=== PATIENT | female | born 1945 | race Caucasian/White ===

== ENCOUNTER 2019-12-18 15:31 | Emergency (ER) | payer OTHER ==
--- OUTSIDE RECORDS SUMMARY | 2019-12-18 15:33 | XMS REPORT ---
:1945 [facility] Address [address] [place] [address] [address]. [address] [place] [address] Care Team Providers Name Role Phone Unavailable Unavailable Unavailable Payers Payer Name Policy Type Policy Number Effective Date Expiration Date Problems This patient has no known problems. Allergies, Adverse Reactions, Alerts Allergy Allergy Status Severity Reaction(s) Onset Inactive Treating Comments Name Type Date Date Clinician No Known DA Active U 2018-07 Allergies -05 00:00:0 0 No Known DA Active U 2015-11 Allergies - 00:00:0 0 Medications This patient has no known medications.
--- NOTE | 2019-12-18 18:01 | RAD REPORT ---
EXAM DESCRIPTION: US - Abdomen Exam Limited - 12/18/2019 5:30 pm CLINICAL HISTORY: abd pain COMPARISON: Abdomen Exam Complete dated 05/03/2019 FINDINGS: No gallstones, sludge or other abnormalities within the gallbladder lumen. There is no wal l thickening or pericholecystic fluid. No common duct stone or biliary tree dilatation identified. IMPRESSION: Normal gallbladder and biliary tree ultrasound.
--- NOTE | 2019-12-18 18:03 | RAD REPORT ---
EXAM DESCRIPTION: RAD - Chest Pa And Lat (2 Views) - 12/18/2019 5:27 pm CLINICAL HISTORY: chest pain COMPARISON: Chest Pa And Lat (2 Views) dated 12/24/2018 TECHNIQUE: Frontal and lateral views of the chest were obtained. FINDINGS: The lungs are clear. Interstitial pattern matches comparison. Heart size is normal and ce ntral vasculature is within normal limits. No pleural effusion or pneumothorax seen. No acute bony finding noted. No aortic abnormality. IMPRESSION: No acute cardiopulmonary process.
[2019-12-18] MEDS ORDERED: SUCRALFATE 1 GM TABLET ONE (19:01)
[2019-12-18] MEDS ORDERED: SIMETHICONE 80 MG TAB ONE (19:01)
[2019-12-18 19:36] LABS: Absolute Lymphocytes (CBC) 2.1 K/uL (0.7-4.9); Basophils % 0.9 % (0-1.3); Hematocrit 44.1 % (36.0-45.0); Lymphocytes % 29.3 % (15.3-44.8); MPV 7.7 fL (7.6-11.3); RBC Red Blood Cell Count 4.85 M/uL (3.86-4.86)
[2019-12-18 19:52] LABS: BUN Blood Urea Nitrogen 13 mg/dL (7-18); Bicarbonate 26 mmol/L (21-32); Creatine Phosphokinase 114 U/L (26-192); Glucose Level 100 mg/dL (74-106); Potassium 4.3 mmol/L (3.5-5.1); Sodium Level 140 mmol/L (136-145); Troponin (Emerg Dept Use Only) < 0.02 ng/mL (0.0-0.045)
--- NOTE | 2019-12-18 20:33 | ER ---
Nurse's Notes [facility] Name: Serena Kohli Age: 73 yrs Sex: Female : 1945 Arrival Date: 12/18/2019 Time: 15:32 Bed 26 Private MD: Diagnosis: Chest pain, unspecified Presentation: 12/18 15:37 Presenting complaint: Patient states: She has had pain in her back for the past couple aj1 week. It started shooting to her chest 2 days ago. She went to Urgent Care and they sent her here. Transition of care: patient was not received from another setting of care. Onset of symptoms was November 2019. Risk Assessment: Do you want to hurt yourself or someone else? Patient reports no desire to harm self or others. Initial Sepsis Screen: Does the patient meet any 2 criteria? No. Patient's initial sepsis screen is negative. Does the patient have a suspected source of infection? No. Patient's initial sepsis screen is negative. Care prior to arrival: None. 15:37 Method Of Arrival: Ambulatory aj1 15:37 Acuity: MILY 3 aj1 Triage Assessment: 15:42 General: Appears in no apparent distress. comfortable, Behavior is calm, cooperative, aj1 appropriate for age. Pain: Complains of pain in back Pain radiates to chest. Neuro: Level of Consciousness is awake, alert, obeys commands, Oriented to person, place, time, situation. Cardiovascular: Reports chest pain, Patient's skin is warm and dry. Respiratory: Airway is patent Respiratory effort is even, unlabored, Respiratory pattern is regular, symmetrical. Historical: - Allergies: 15:42 No Known Allergies; aj1 - Home Meds: 15:42 gabapentin oral oral [Active]; meloxicam oral oral [Active]; Zyrtec Oral [Active]; aj1 Prolia subcutaneous subcutaneous [Active]; - PMHx: 15:42 Osteoporosis; Diabetes - NIDDM; aj1 - Immunization history:: Flu vaccine is not up to date. - Coronavirus screen:: The patient has NOT traveled to [place] in the past 14 days. - Social history:: Smoking status: Patient/guardian denies using tobacco. - Ebola Screening: : Patient denies travel to an Ebola-affected area in the 21 days before illness onset. Vital Signs: 15:42 BP 139 / 77; Pulse 89; Resp 18; Temp 97.4; Pulse Ox 99% on R/A; Weight 78.47 kg (R); aj1 Height 5 ft. 2 in. (157.48 cm) (R); Pain 6/10; 15:42 Body Mass Index 31.64 (78.47 kg, 157.48 cm) aj1 ED Course: 15:32 Patient arrived in ED. as 15:39 Triage completed. aj1 15:42 Arm band placed on Patient placed in waiting room, Patient notified of wait time. aj1 15:46 Huong Matos, RN is Primary Nurse. aj1 16:17 Ludy White, PRECIOUS-C is PHCP. snw 16:17 Tan Robertson MD is Attending Physician. snw 17:21 Ultrasound completed. Patient tolerated well. Note: pt taken to xray after us. sg3 Administered Medications: 19:00 Drug: CarafATE 1 grams Route: PO; vc 19:00 Drug: Simethicone 240 mg Route: PO; vc Outcome: 20:32 Discharge ordered by . snw 20:42 Patient left the ED. lt1 Signatures: Huong Matos, RN RN aj1 Ludy White, PRECIOUS-C EXTRUSION DIE REPAIRER-CsnCindy Britt Sarah sg3 Rebeca Sandoval lt1 Morenita Torres RN RN vc
--- NOTE | 2019-12-18 20:34 | EDPHYS ---
Physician Documentation [facility] Name: Serena Kohli Age: 73 yrs Sex: Female : 1945 Arrival Date: 12/18/2019 Time: 15:32 Bed 26 Private MD: ED Physician Tan Robertson HPI: 12/18 16:31 This 73 yrs old Female presents to ER via Ambulatory with complaints of Chest snw Tightness, Back Pain, Arm Pain. 16:31 Onset: The symptoms/episode began/occurred suddenly, yesterday. Associated signs and snw symptoms: Pertinent positives: paresthesias to right chest and axillary area. Modifying factors: The patient symptoms are alleviated by nothing. The patient has not experienced similar symptoms in the past. The patient has not recently seen a physician. hx of osteoporosis, took prolia recently. Historical: - Allergies: 15:42 No Known Allergies; aj1 - Home Meds: 15:42 gabapentin oral oral [Active]; meloxicam oral oral [Active]; Zyrtec Oral [Active]; aj1 Prolia subcutaneous subcutaneous [Active]; - PMHx: 15:42 Osteoporosis; Diabetes - NIDDM; aj1 - Immunization history:: Flu vaccine is not up to date. - Coronavirus screen:: The patient has NOT traveled to [place] in the past 14 days. - Social history:: Smoking status: Patient/guardian denies using tobacco. - Ebola Screening: : Patient denies travel to an Ebola-affected area in the 21 days before illness onset. ROS: 16:30 Constitutional: Negative for fever, chills, and weight loss, Eyes: Negative for injury, snw pain, redness, and discharge, ENT: Negative for injury, pain, and discharge, Neck: Negative for injury, pain, and swelling, Cardiovascular: Negative for palpitation and edema, + chest and back pain to right side Respiratory: Negative for shortness of breath, cough, wheezing, and pleuritic chest pain, Abdomen/GI: Negative for abdominal pain, nausea, vomiting, diarrhea, and constipation, : Negative for injury, bleeding, discharge, and swelling, MS/Extremity: Negative for injury and deformity, Skin: Negative for injury, rash, and discoloration, Neuro: Negative for headache, weakness, numbness, tingling, and seizure. Exam: 16:29 Constitutional: This is a well developed, well nourished patient who is awake, alert, snw and in no acute distress. Head/Face: Normocephalic, atraumatic. Eyes: Pupils equal round and reactive to light, extra-ocular motions intact. Lids and lashes normal. Conjunctiva and sclera are non-icteric and not injected. Cornea within normal limits. Periorbital areas with no swelling, redness, or edema. ENT: Nares patent. No nasal discharge, no septal abnormalities noted. Tympanic membranes are normal and external auditory canals are clear. Oropharynx with no redness, swelling, or masses, exudates, or evidence of obstruction, uvula midline. Mucous membranes moist. Neck: Trachea midline, no thyromegaly or masses palpated, and no cervical lymphadenopathy. Supple, full range of motion without nuchal rigidity, or vertebral point tenderness. No Meningismus. Cardiovascular: Regular rate and rhythm with a normal S1 and S2. No gallops, murmurs, or rubs. Normal PMI, no JVD. No pulse deficits. Respiratory: Lungs have equal breath sounds bilaterally, clear to auscultation and percussion. No rales, rhonchi or wheezes noted. No increased work of breathing, no retractions or nasal flaring. Abdomen/GI: Soft, non-tender, with normal bowel sounds. No distension or tympany. No guarding or rebound. No evidence of tenderness throughout. Back: No spinal tenderness. No costovertebral tenderness. Full range of motion. Skin: Warm, dry with normal turgor. Normal color with no rashes, no lesions, and no evidence of cellulitis. MS/ Extremity: Pulses equal, no cyanosis. Neurovascular intact. Full, normal range of motion. Neuro: Awake and alert, GCS 15, oriented to person, place, time, and situation. Cranial nerves II-XII grossly intact. Motor strength 5/5 in all extremities. Sensory grossly intact. Cerebellar exam normal. Normal gait. Psych: Awake, alert, with orientation to person, place and time. Behavior, mood, and affect are within normal limits. 16:29 Chest/axilla: Inspection: normal, Palpation: tenderness, that is moderate, of the anterior aspect of right upper chest and right lateral anterior chest, that partially reproduces the patient's complaints. Vital Signs: 15:42 BP 139 / 77; Pulse 89; Resp 18; Temp 97.4; Pulse Ox 99% on R/A; Weight 78.47 kg (R); aj1 Height 5 ft. 2 in. (157.48 cm) (R); Pain 6/10; 15:42 Body Mass Index 31.64 (78.47 kg, 157.48 cm) aj1 MDM: 16:18 Patient medically screened. snw 20:34 Data reviewed: vital signs, nurses notes. Data interpreted: Pulse oximetry: on room air snw is 99 %. Interpretation: normal. Counseling: I had a detailed discussion with the patient and/or guardian regarding: the historical points, exam findings, and any diagnostic results supporting the discharge/admit diagnosis, the presence of at least one elevated blood pressure reading (>120/80) during this emergency department visit, lab results, radiology results, the need for outpatient follow up, to return to the emergency department if symptoms worsen or persist or if there are any questions or concerns that arise at home. Special discussion: Based on the patient's history, exam, and Dx evaluation, there is no indication for emergent intervention or inpatient Tx. It is understood by the patient/guardian that if the Sx's persist or worsen they need to return immediately for re-evaluation. Based on the patient's Hx, exam, and Dx evaluation, there is no indication for emergent surgery or inpatient Tx. It is understood by the patient/guardian that if the Sx's persist or worsen they need to return immediately for re-evaluation. I have referred the patient to see his PCP for further evaluation of high blood pressure. Based on the history and exam findings, there is no indication for further emergent testing or inpatient evaluation. I discussed with the patient/guardian the need to see the figure refinisher and repairer for further evaluation of the symptoms. I discussed with the patient/guardian the need to see the cad operator for further evaluation of the symptoms. I discussed with the patient/guardian the need to see the primary care provider for further evaluation of the symptoms. 12/18 17:58 Order name: CBC with Diff snw 12/18 17:58 Order name: Chem 7 snw 12/18 17:58 Order name: Troponin (emerg Dept Use Only) snw 12/18 17:58 Order name: CPK snw 12/18 19:38 Order name: CBC with Automated Diff; Complete Time: 19:39 [facility] 12/18 19:54 Order name: Basic Metabolic Panel; Complete Time: 19:53 [facility] 12/18 15:44 Order name: EKG - Nurse/Tech; Complete Time: 17:46 [facility] 12/18 15:44 Order name: Chest Pa And Lat (2 Views) XRAY [facility] 12/18 15:44 Order name: US Abdomen Limited [facility] 12/18 19:54 Order name: Creatine Phosphokinase; Complete Time: 19:53 [facility] 12/18 19:54 Order name: Troponin (Emerg Dept Use Only); Complete Time: 19:53 ED[facility] Administered Medications: 19:00 Drug: CarafATE 1 grams Route: PO; vc 19:00 Drug: Simethicone 240 mg Route: PO; vc Disposition: 12/19 07:02 Co-signature as Attending Physician, Tan Robertson MD. rn Disposition: 12/18/19 20:32 Discharged to Home. Impression: Chest pain, unspecified. - Condition is Stable. - Discharge Instructions: Nonspecific Chest Pain, Chest Wall Pain, Esophagitis, Gastroesophageal Reflux Disease, Adult, Hiatal Hernia. - Prescriptions for Carafate 1 gram Oral Tablet - take 1 tablet by ORAL route 4 times per day take on an empty stomach, beginning on waking and last dose at bedtime; 100 tablet. Pepcid 20 mg Oral Tablet - take 1 tablet by ORAL route once daily; 20 tablet. - Medication Reconciliation Form, Thank You Letter, Antibiotic Education, Prescription Opioid Use form. - Follow up: Emergency Department; When: As needed; Reason: Worsening of condition. Follow up: Private Physician; When: 2 - 3 days; Reason: Recheck today's complaints, Continuance of care, Re-evaluation by your physician. - Notes: Gas-x as directed Signatures: Dispatcher [employer] [facility] Huong Matos RN RN aj1 Ludy White, MEDICAL RECORD ASSISTANT-C MEDICAL RECORD ASSISTANT-Csnw Tan Robertson MD MD rn Tran, Leah 1 Morenita Torres RN RN vc Corrections: (The following items were deleted from the chart) 12/18 20:42 20:32 12/18/2019 20:32 Discharged to Home. Impression: Chest pain, unspecified. lt1 Condition is Stable. Forms are Medication Reconciliation Form, Thank You Letter, Antibiotic Education, Prescription Opioid Use. Follow up: Emergency Department; When: As needed; Reason: Worsening of condition. Follow up: Private Physician; When: 2 - 3 days; Reason: Recheck today's complaints, Continuance of care, Re-evaluation by your physician. eliceo
[2019-12-18 21:19] VITALS: BP 139/77; TEMP 97.4; O2SAT 99
--- NOTE | 2019-12-20 08:55 | EKG ---
Test Date: 2019-12-18 Test Time: 15:53:58 Visual Coordinator: BRADT MEASUREMENT RESULTS: Intervals: Rate: 86 MD: 152 QRSD: 78 QT: 392 QTc: 469 [place]: P: 41 MD: 152 QRS: -22 T: 39 INTERPRETIVE STATEMENTS: Sinus rhythm with fusion complexes Cannot rule out Anterior infarct, age undetermined Abnormal ECG Compared to ECG 02/01/2016 15:42:47 Fusion complex(es) now present Myocardial infarct finding now present Electronically Signed On 12-20-19 08:55:19 SUPERVISOR PLATE PASTING by Doc Lawson
== END 2019-12-18 20:42 | disposition home or self-care (01) ==
LOC: ER 15:31
DX: R07.9 Chest pain, unspecified (principal)
CPT/HCPCS: 36415; 71046; 76705; 80048; 82550; 84484; 85025; 93005; 99282